=== PATIENT | male | born 1960 | race Caucasian/White ===

== ENCOUNTER 2019-04-19 12:14 | Day surgery (SDC) | payer OTHER ==
[~2019-04-19] VITALS: Ht 175.3 cm; Wt 61.7 kg
[~2019-04-19 12:14] MED LIST: ACET500T15 PO; CHOL100029 PO; GUAI400T9 PO; LISI-538 PO; MELO15TA28 PO; NS 1,000 ML IV ONE; OXYB5TAB10 PO
[2019-04-19] MEDS ORDERED: PROPOFOL 200 MG/20 ML VIAL As Ordered ONE ×2 (13:31→13:32)
[2019-04-19] MEDS ORDERED: LIDOCAINE 2% INJ 100 MG/5 ML SDV (FOR ANES.) As Ordered ONE ×2 (13:31→13:32)
--- NOTE | 2019-04-19 14:14 | ROOR ---
Patient Name: Venkata Friedman Procedure Date: 04/19/2019 1:57 PM Date of : 1960 Age: 59 Room: [facility] Gender: Male Note Status: Finalized Procedure: Upper Endoscopy + Biopsies Indications: Heartburn, Exclusion of Gabriel's esophagus Providers: Yuval Parra MD Referring MD: [facility] Edmundo [facility], Admin. Requesting Provider: Medicines: Monitored Anesthesia Care Complications: No immediate complications. Procedure: Pre-Anesthesia Assessment: - The heart rate, respiratory rate, oxygen saturations, blood pressure, adequacy of pulmonary ventilation, and response to care were monitored throughout the procedure. The Endoscope was introduced through the mouth, and advanced to the second part of duodenum. The upper GI endoscopy was accomplished without difficulty. The patient tolerated the procedure well. Findings: The Z-line was irregular and was found 42 cm from the incisors. Multiple biopsies were obtained with cold forceps for evaluation to rule out Gabriel's Esophagus randomly at the gastroesophageal junction. A small hiatal hernia was present. Localized mildly erythematous mucosa without bleeding was found in the gastric antrum. Biopsies were taken with a cold forceps for Helicobacter pylori testing. The exam of the duodenum was otherwise normal. Impression: - Z-line irregular, 42 cm from the incisors. - Small hiatal hernia. - Erythematous mucosa in the antrum. Biopsied. - Multiple biopsies were obtained at the gastroesophageal junction. - The examination was otherwise normal. Recommendation: - Patient has a contact number available for emergencies. The signs and symptoms of potential delayed complications were discussed with the patient. Return to normal activities tomorrow. Written discharge instructions were provided to the patient. - High fiber diet. - Discharge patient to home. - Follow an antireflux regimen. - Continue present medications. - Await pathology results. - Telephone GI clinic for pathology results in 1 week. - The findings and recommendations were discussed with the patient's family. Yuval Parra MD Yuval Parra MD 04/19/2019 2:13:27 PM Electronically signed by Yuval Parra MD Number of Addenda: 0 Note Initiated On: 04/19/2019 1:57 PM Estimated Blood Loss: Estimated blood loss: none.
--- NOTE | 2019-04-19 14:36 | ROOR ---
Patient Name: Venkata Friedman Procedure Date: 04/19/2019 1:58 PM Date of : 1960 Age: 59 Room: [facility] Gender: Male Note Status: Finalized Procedure: Total Colonoscopy to Cecum Indications: Screening for colorectal malignant neoplasm Providers: Yuval Parra MD Referring MD[facility], Admin. Requesting Provider: Medicines: Monitored Anesthesia Care Complications: No immediate complications. Procedure: Pre-Anesthesia Assessment: - The heart rate, respiratory rate, oxygen saturations, blood pressure, adequacy of pulmonary ventilation, and response to care were monitored throughout the procedure. The Colonoscope was introduced through the anus and advanced to the cecum, identified by appendiceal orifice and ileocecal valve. The colonoscopy was performed without difficulty. The patient tolerated the procedure well. The quality of the bowel preparation was excellent. Findings: The perianal and digital rectal examinations were normal. Non-bleeding internal hemorrhoids were found during retroflexion. The hemorrhoids were small. No other significant abnormalities were identified in a careful examination of the remainder of the colon. The exam was otherwise without abnormality on direct and retroflexion views. Impression: - Non-bleeding internal hemorrhoids. - The examination was otherwise normal on direct and retroflexion views. - No specimens collected. - The exam was otherwise normal to the cecum. Recommendation: - Patient has a contact number available for emergencies. The signs and symptoms of potential delayed complications were discussed with the patient. Return to normal activities tomorrow. Written discharge instructions were provided to the patient. - High fiber diet. - Discharge patient to home. - Continue present medications. - Repeat colonoscopy in 10 years for screening purposes. - Return to referring physician. - The findings and recommendations were discussed with the patient's family. Yuval Parra MD Yuval Parra MD 04/19/2019 2:36:15 PM Electronically signed by Yuval Parra MD Number of Addenda: 0 Note Initiated On: 04/19/2019 1:58 PM Estimated Blood Loss: Estimated blood loss: none.
[2019-04-19 14:50] VITALS: BP 129/63
== END 2019-04-19 15:08 | disposition home or self-care (01) ==
LOC: M OPP 12:14
PROVIDERS: ATTEND Internal Medicine Gastroenterology
DX: Z12.11 Encounter for screening for malignant neoplasm of colon (principal); K64.8 Other hemorrhoids; K22.8 Other specified diseases of esophagus; K44.9 Diaphragmatic hernia without obstruction or gangrene; K31.89 Other diseases of stomach and duodenum; R12 Heartburn; F17.210 Nicotine dependence, cigarettes, uncomplicated; Z91.030 Bee allergy status
CPT/HCPCS: 43239; 88305; G0121

== ENCOUNTER → 2019-05-16 | Outpatient (CLI) | payer OTHER ==
[~2019-05-16] MED LIST changes: -NS 1,000 ML IV ONE
--- NOTE | 2019-05-16 09:16 | REP ---
MRI cervical and lumbar spines: 05/16/2019. Indication: Neck and low back pain. Comparison: None. Technique: Multiplanar short and long TR sequences of the cervical and lumbar spines were obtained without IV Gadolinium. Findings: There is mild retrolisthesis of C3 and C4. There is minimal straightening of the cervical lordosis. Marrow edema is noted within C3 and C4, likely representing degenerative sequelae. Additional degenerative sequelae are otherwise present within the remainder of the cervical spine most pronounced at C6/C7. Considerable susceptibility artifact is noted at the lumbosacral segment, likely related to surgical hardware. The tip of the conus medullaris is unremarkable as is the visualized cervical spinal cord. C2/C3: Left greater than right facet arthropathy is present with mild left neural foraminal narrowing. C3/C4: Right greater than left facet arthropathy and uncovertebral proliferation is present. There is considerable disc space narrowing. There is severe right and moderate to severe left neural foraminal narrowing. There is overall mild narrowing of the spinal canal. C4/C5 and C5/C6: There is no focal disc herniation or significant spinal canal / neural foraminal narrowing. C6/C7: There is an asymmetric disc osteophyte more pronounced on the right with moderate right neural foraminal narrowing. C7/T1: There is no focal disc herniation or significant spinal canal / neural foraminal narrowing. L1/L2, L2/L3 and L3/L4: There is no focal disc herniation or significant spinal canal / neural foraminal narrowing. L4/L5 and L5/S1: These levels are incompletely evaluated secondary to surgical hardware and associated susceptibility artifact. No definite focal disc herniation or significant spinal canal / neural foraminal narrowing is appreciated. Impression: Multilevel degenerative and postoperative sequelae as described with the greatest neural foraminal narrowing at C3/C4. No severe narrowing of the spinal canal/cord compression is detected. Electronically Signed by Eric Medina DO 05/16/2019 09:07 A
== END ==
LOC: M RAD 06:28
PROVIDERS: ATTEND Physician Assistant Medical
DX: M54.2 Cervicalgia (principal)

== ENCOUNTER → 2020-07-01 | Outpatient (CLI) | payer OTHER ==
[~2020-07-01] MED LIST changes: -LISI-538 PO; +LISI20TA33 PO
--- NOTE | 2020-07-01 17:42 | REPVR ---
PROCEDURE INFORMATION: Exam: CT Cervical Spine Without Contrast Exam date and time: 07/01/2020 5:13 PM Age: 60 years old Clinical indication: Pain; Cervicalgia TECHNIQUE: Imaging protocol: Computed tomography images of the cervical spine without contrast. Radiation optimization: All CT scans at this facility use at least one of these dose optimization techniques: automated exposure control; mA and/or kV adjustment per patient size (includes targeted exams where dose is matched to clinical indication); or iterative reconstruction. COMPARISON: MRI-Spine,Cervical without con 05/16/2019 7:18 AM FINDINGS: Bones/joints: Grade 1 anterolisthesis of C2 over C3. Grade 1 retrolisthesis of C3 over C4. There is sclerosis of C3 and C4 vertebra. Discs/Spinal canal/Neural foramina: There is multilevel uncovertebral and facet hypertrophy with neural foramina narrowing. Lungs: Lung apices are normal. Soft tissues: Unremarkable. IMPRESSION: No acute fracture. There is multilevel uncovertebral and facet hypertrophy with neural foramina narrowing. Multilevel spondylolisthesis, likely degenerative. Sclerosis of C3 and C4 vertebral. Differential includes degenerative changes / metastatic disease/metabolic abnormality . Clinical correlation. Electronically signed by: Francisco Sullivan On 07/01/2020 17:42:28 PM
== END ==
LOC: M RAD 17:04
PROVIDERS: ATTEND Physician Assistant Medical
DX: M25.78 Osteophyte, vertebrae (principal); M43.12 Spondylolisthesis, cervical region

== ENCOUNTER → 2021-01-21 | Outpatient (CLI) | payer OTHER ==
[~2021-01-21] MED LIST changes: +ASPI81TA26 PO; +CYCL-707 PO; +PROHANCE 279.3MG/ML 15ML VIAL As Ordered ONE; +VITMTA PO
--- NOTE | 2021-01-22 18:31 | REPVR ---
PROCEDURE INFORMATION: Exam: MR Cervical Spine Without and With Contrast Exam date and time: 01/21/2021 6:42 PM Age: 60 years old Clinical indication: Pain; Cervicalgia TECHNIQUE: Imaging protocol: Multiplanar magnetic resonance images of the cervical spine without and with contrast. Contrast material: PROHANCE; Contrast volume: 13 ml; Contrast route: INTRAVENOUS (IV); COMPARISON: CT Spine,cervical w/o contrast 07/01/2020 5:16 PM FINDINGS: Vertebrae: C3 and C4 demonstrate decreased T1 weighted signal with modest increased signal in T2 and STIR weighted imaging suggesting mild marrow edema. Patient has no reported history of trauma. Edema secondary to degenerative changes and or infection not excluded. Spinal cord: Normal signal. No cord compression. C2-C3: No significant disc disease. No significant spinal stenosis. C3-C4: Broad posterior disc protrusion at C3-C4 effaces the ventral subarachnoid space with mild cord impingement. There is moderate to severe bilateral foraminal stenosis. C4-C5: Mild annular bulge at C4-C5 effaces the ventral subarachnoid space without cord impingement. There is moderate bilateral foraminal stenosis. C5-C6: Mild annular bulge at C5-C6. Mild bilateral foraminal stenosis at C5-C6. C6-C7: No significant disc disease at C6-C7. Moderate foraminal narrowing on the right at C6. C7-T1: No significant disc disease. No significant spinal stenosis. Soft tissues: Unremarkable. Vertebral arteries: Expected flow voids in the vertebral arteries. IMPRESSION: 1. Marrow edema at C3 and C4. Differential includes degenerative change, trauma and infection. 2. Broad posterior disc protrusion C3-C4 with mild cord impingement. 3. Mild annular bulges at C4-C5 and C5-C6. 4. Multilevel foraminal stenoses, moderate to severe bilaterally at C3-C4, moderate bilaterally at C4-C5, moderate on the right at C6-C7 and mild bilateral foraminal stenosis at C5-C6. Electronically signed by: Eric Will On 01/22/2021 18:30:22 PM
== END ==
LOC: M RAD 17:03
PROVIDERS: ATTEND Physician Assistant
DX: M50.220 Other cervical disc displacement, mid-cervical region, unspecified level (principal); M48.02 Spinal stenosis, cervical region
CPT/HCPCS: 72156; A9576

== ENCOUNTER → 2021-01-30 | Outpatient (CLI) | payer OTHER ==
[~2021-01-30] MED LIST changes: -PROHANCE 279.3MG/ML 15ML VIAL As Ordered ONE
--- NOTE | 2021-01-30 14:42 | REP ---
INDICATION: Z12.2 SCREENING FOR MALIGN NEOPLASM COMPARISON: None. TECHNIQUE: Axial noncontrast images from the thoracic inlet to the upper abdomen using low-dose lung screening technique (LDCT). FINDINGS: Lung travis are well aerated. Subtle scattered chronic appearing changes are suggested. No prior examination is available for comparison. There is a 6 mm nodule in the right apex which may be related to apical scarring. Few smaller nodules and few calcifications are also identified bilaterally suggesting granulomatous disease. No effusion. No pneumothorax. Tracheobronchial tree is patent. IMPRESSION: No prior examinations are available for comparison. Lung-RADS category 3. Six-month follow-up examination may be warranted. <Electronically signed by Jake Jim > 01/30/21 [id number]
== END ==
LOC: M RAD 14:00
PROVIDERS: ATTEND Nurse Practitioner Primary Care
DX: Z12.2 Encounter for screening for malignant neoplasm of respiratory organs (principal); F17.210 Nicotine dependence, cigarettes, uncomplicated

== ENCOUNTER → 2021-05-05 | Outpatient (CLI) | payer OTHER ==
[2021-05-05 09:27] LABS: INR 0.9; PROTHROMBIN TIME 12.6 SECONDS (12.7-14.5)
== END ==
LOC: M LAB 08:28
PROVIDERS: ATTEND Physician Assistant
DX: M47.26 Other spondylosis with radiculopathy, lumbar region (principal); M43.02 Spondylolysis, cervical region; M54.2 Cervicalgia

== ENCOUNTER → 2021-05-05 | Outpatient (CLI) | payer OTHER ==
[2021-05-06 18:07] LABS: PSA TOTAL 0.9 ng/mL (0.0-4.0); TESTOSTERONE FREE (DIRECT) 21.3 pg/mL (6.6-18.1)
== END ==
LOC: M LAB 08:32
PROVIDERS: ATTEND Urology
DX: N52.9 Male erectile dysfunction, unspecified (principal); R97.20 Elevated prostate specific antigen [PSA]; M47.26 Other spondylosis with radiculopathy, lumbar region; M43.02 Spondylolysis, cervical region; M54.2 Cervicalgia

== ENCOUNTER → 2021-05-26 | Outpatient (CLI) | payer OTHER ==
[~2021-05-26] MED LIST changes: +ISOVUE-M 300 61% 15ML VIAL As Ordered ONE; +LIDOCAINE 1% MDV 20ML VIAL As Ordered ONE
[2021-05-26 11:59] VITALS: BP 162/91
== END ==
LOC: M IRPRO 08:55
PROVIDERS: ATTEND Physician Assistant
DX: M47.26 Other spondylosis with radiculopathy, lumbar region (principal); M54.2 Cervicalgia
CPT/HCPCS: 72131; Q9967

== ENCOUNTER → 2021-06-26 | Outpatient (CLI) | payer OTHER ==
[~2021-06-26] MED LIST changes: -ISOVUE-M 300 61% 15ML VIAL As Ordered ONE; -LIDOCAINE 1% MDV 20ML VIAL As Ordered ONE
== END ==
LOC: M PAIN 08:30
PROVIDERS: ATTEND Anesthesiology
DX: M53.3 Sacrococcygeal disorders, not elsewhere classified (principal); M96.1 Postlaminectomy syndrome, not elsewhere classified; M51.16 Intervertebral disc disorders with radiculopathy, lumbar region; F17.210 Nicotine dependence, cigarettes, uncomplicated; Z91.030 Bee allergy status; Z79.899 Other long term (current) drug therapy

== ENCOUNTER → 2021-07-14 | Outpatient (CLI) | payer OTHER | LOC: M PLAIMG 08:43 | PROVIDERS: ATTEND Anesthesiology | DX: M53.3 Sacrococcygeal disorders, not elsewhere classified (principal) ==

== ENCOUNTER → 2021-07-18 | Outpatient (CLI) | payer OTHER | LOC: M RAD 08:52 | PROVIDERS: ATTEND Nurse Practitioner Primary Care | DX: R94.5 Abnormal results of liver function studies (principal); N28.1 Cyst of kidney, acquired; I25.10 Atherosclerotic heart disease of native coronary artery without angina pectoris; I70.0 Atherosclerosis of aorta ==

== ENCOUNTER → 2021-09-04 | Outpatient (CLI) | payer OTHER | LOC: M SOG 07:57 | PROVIDERS: ATTEND Physician Assistant | DX: M79.642 Pain in left hand (principal) ==

== ENCOUNTER → 2021-09-17 | Outpatient (CLI) | payer OTHER ==
[2021-09-17 10:35] LABS: HEMOGLOBIN A1c 5.1 %
[2021-09-17 11:20] LABS: FOLATE 9.4 NG/ML; FREE T4 0.79 NG/DL (0.76-1.46); RHEUMATOID FACTOR QUANT 10.3 IU/ML (<15.0); TOTAL PROTEIN 7.4 GM/DL (6.4-8.2); VITAMIN B12 LEVEL 273 PG/ML
== END ==
LOC: M PLALAB 06:59
PROVIDERS: ATTEND Psychiatry & Neurology Neurology
DX: Z13.1 Encounter for screening for diabetes mellitus (principal); E07.9 Disorder of thyroid, unspecified; G62.9 Polyneuropathy, unspecified; M35.00 Sjogren syndrome, unspecified; Z79.899 Other long term (current) drug therapy

== ENCOUNTER → 2021-11-06 | Outpatient (CLI) | payer OTHER ==
[~2021-11-06] MED LIST changes: +CIAL20TA PO
== END ==
LOC: M LABSMTC 09:00
PROVIDERS: ATTEND Anesthesiology
DX: Z01.818 Encounter for other preprocedural examination (principal); Z11.52 Encounter for screening for COVID-19

== ENCOUNTER → 2021-11-11 | Outpatient (CLI) | payer OTHER ==
[~2021-11-11] MED LIST changes: +BUPIVACAINE HCL 0.25% 30ML VIAL As Ordered ONE; +ISOVUE-M 300 61% 15ML VIAL As Ordered ONE; +LIDOCAINE 1% SDV 30ML VIAL As Ordered ONE; +TRIAMCINOLONE ACETONIDE SUSP 40 MG/ML VIAL (J3301) As Ordered ONE; +diazePAM 5MG TABLET As Ordered ONE; +oxyCODONE 5MG TAB As Ordered ONE
[2021-11-11 09:50] VITALS: BP 166/94
== END ==
LOC: M IRPRO 08:23
PROVIDERS: ATTEND Anesthesiology
DX: M46.1 Sacroiliitis, not elsewhere classified (principal); G89.29 Other chronic pain; M19.90 Unspecified osteoarthritis, unspecified site; Z91.030 Bee allergy status
CPT/HCPCS: G0260; J3301; Q9967

== ENCOUNTER → 2023-02-10 | Outpatient (CLI) | payer OTHER ==
[~2023-02-10] MED LIST changes: -BUPIVACAINE HCL 0.25% 30ML VIAL As Ordered ONE; -ISOVUE-M 300 61% 15ML VIAL As Ordered ONE; -LIDOCAINE 1% SDV 30ML VIAL As Ordered ONE; -TRIAMCINOLONE ACETONIDE SUSP 40 MG/ML VIAL (J3301) As Ordered ONE; -diazePAM 5MG TABLET As Ordered ONE; -oxyCODONE 5MG TAB As Ordered ONE
== END ==
LOC: M RAD 06:42
PROVIDERS: ATTEND Nurse Practitioner Family
DX: Z87.891 Personal history of nicotine dependence (principal)

== ENCOUNTER → 2024-08-21 | Outpatient (CLI) | payer OTHER ==
[~2024-08-21] MED LIST changes: +EPIP0.3I2 IM; +FLOM0.4C39 PO; -OXYB5TAB10 PO; +OXYB5TAB14 PO; +RAMI10CA64 PO
== END ==
LOC: M RAD 13:15
PROVIDERS: ATTEND Nurse Practitioner Family
DX: Z12.2 Encounter for screening for malignant neoplasm of respiratory organs (principal); Z87.891 Personal history of nicotine dependence

== ENCOUNTER → 2024-10-03 | Day surgery (SDC) | payer OTHER ==
[~2024-10-03] VITALS: Ht 175.3 cm; Wt 65.8 kg
[~2024-10-03] MED LIST changes: -FLOM0.4C39 PO; +LIDOCAINE 2% 100MG/5ML SDV (FOR ANES.) As Ordered ONE; +TAMS-18 PO; +VIBE75TA PO; +fentaNYL 100 MCG/2 ML INJECTION As Ordered ONE; +propofoL 500 MG/50 ML VIAL As Ordered ONE
== END | disposition home or self-care (01) ==
LOC: M OPP 08:00
PROVIDERS: ATTEND Surgery
DX: Z53.09 Procedure and treatment not carried out because of other contraindication (principal)

== ENCOUNTER → 2024-10-18 | Outpatient (REF) | payer OTHER ==
[~2024-10-18] MED LIST changes: -LIDOCAINE 2% 100MG/5ML SDV (FOR ANES.) As Ordered ONE; -fentaNYL 100 MCG/2 ML INJECTION As Ordered ONE; -propofoL 500 MG/50 ML VIAL As Ordered ONE
[2024-10-18 13:36] LABS: APPEARANCE, URINE CLEAR (CLEAR); BACTERIA, URINE AUTO NEGATIVE (NEGATIVE); BILIRUBIN, URINE AUTO NEGATIVE (NEGATIVE); BLOOD, URINE BLOOD NEGATIVE (NEGATIVE); COLOR, URINE YELLOW (YELLOW); GLUCOSE, URINE (UA) AUTO NEGATIVE (NEGATIVE); KETONE, URINE AUTO NEGATIVE (NEGATIVE); LEUKOCYTE ESTERASE, URINE AUTO NEGATIVE (NEGATIVE); MUCUS, URINE SMALL (NEGATIVE); NITRITE, URINE AUTO NEGATIVE (NEGATIVE); PROTEIN, URINE AUTO NEGATIVE (NEGATIVE); RBC, URINE AUTO 0 /HPF (0-3); SPECIFIC GRAVITY URINE AUTO 1.017 (1.002-1.035); SQUAMOUS EPITHELIAL CELL UR AU 0 /HPF (0-6); UROBILINOGEN, URINE AUTO 0.2 mg/dL (0.0-2.0); WBC, URINE AUTO 1 /HPF (0-3)
== END ==
LOC: M SMT 13:08
PROVIDERS: ATTEND Nurse Practitioner Family
DX: R35.1 Nocturia (principal)